=== PATIENT | female | born 1980 | race African-American/Black ===

== ENCOUNTER 2019-08-21 21:40 | Inpatient (IN) | payer BC ==
[~2019-08-21] VITALS: Ht 162.6 cm; Wt 120.5 kg
[2019-08-21 22:07] LABS: BASOPHILS # (AUTO) 0.1 X10'3 (0-0.2); BASOPHILS % (AUTO) 0.9 % (0-1); EOSINOPHILS # (AUTO) 0.1 X10'3 (0-0.9); EOSINOPHILS % (AUTO) 1.4 % (0-6); HEMATOCRIT 32.7 % (35.0-45.0); HEMOGLOBIN 10.5 g/dl (12.0-16.0); LYMPHOCYTES # (AUTO) 1.5 X10'3 (1.1-4.8); LYMPHOCYTES % (AUTO) 23.1 % (21-51); MEAN CORPUSCULAR HGB CONC 32.2 g/dL (33.0-36.5); MEAN CORPUSCULAR VOLUME 77.5 FL (78-98); MEAN PLATELET VOLUME 9.4 FL (7.4-10.4); MONOCYTES # (AUTO) 0.5 X10'3 (0-0.9); MONOCYTES % (AUTO) 8.6 % (2-12); NEUTROPHILS # (AUTO) 4.2 X10'3 (1.8-7.7); PLATELET COUNT 222 X10'3 (140-440); RED BLOOD COUNT 4.22 X10'6 (4.20-5.60); RED CELL DISTRIBUTION WIDTH 16.3 % (11.5-14.5); WHITE BLOOD COUNT 6.4 X10'3 (4.5-11.0)
[2019-08-21 22:26] LABS: PARTIAL THROMBOPLASTIN TIME 26 SECONDS (22-32)
[2019-08-21 22:29] LABS: ALANINE AMINOTRANSFERASE 20 U/L (12-78); ALBUMIN 3.6 G/DL (3.4-5.0); ALKALINE PHOSPHATASE 101 IU/L (46-116); ANION GAP 8 (8-16); ASPARTATE AMINO TRANSFERASE 12 U/L (10-37); BILIRUBIN,TOTAL 0.2 MG/DL (0.1-1.0); BLOOD UREA NITROGEN 10 MG/DL (7-18); BUN/CREATININE RATIO 10.2 (6.6-38.0); CHLORIDE 106 MMOL/L (99-107); CREATININE 0.98 MG/DL (0.40-0.90); GLUCOSE 99 MG/DL (70-104); POTASSIUM 3.6 MMOL/L (3.5-5.1); SODIUM 141 MMOL/L (135-145); TOTAL CARBON DIOXIDE 26.8 MMOL/L (24-32); TOTAL PROTEIN 7.1 G/DL (6.4-8.2); TROPONIN I < 0.04 NG/ML (0.0-0.05); eGFR 64 ML/MIN
[2019-08-21] MEDS ORDERED: iohexol 350MG/ML 100ml bottle IV ONE (22:45)
--- NOTE | 2019-08-21 23:10 | NUR ---
NOTIFIED JIMMIE PT HAS HX OF MIGRAINES AND WOULD LIKE ASPIRIN. SHE IS ALSO FEELING NAUSEATED. NO NEW NEURO SYMPTOMS
[2019-08-21] MEDS ORDERED: aspirin 325mg tablet PO ONE (23:45)
[2019-08-21] MEDS ORDERED: DULO-31 PO (23:56)
--- NOTE | 2019-08-22 02:01 | NUR ---
HOSPITALIST AT BEDSIDE FOR ADMISSION
[2019-08-22] MEDS ORDERED: magnesium hydroxide 30ml (MOM) UD suspension PO PRN (02:25)
[2019-08-22] MEDS ORDERED: acetaminophen 325mg tablet PO PRN (02:25)
[2019-08-22] MEDS ORDERED: mag hydrox/Alum hydrox/simeth 30ml oral suspension PO PRN (02:25)
[2019-08-22] MEDS ORDERED: ondansetron/PF 4mg/2ml inj IV PRN (02:25)
[2019-08-22] MEDS ORDERED: LEVO50TA8 PO (02:33)
[2019-08-22] MEDS ORDERED: LORA10TA7 PO (02:33)
[2019-08-22] MEDS ORDERED: loratadine 10mg tablet PO PRN (02:50)
--- NOTE | 2019-08-22 02:51 | NUR ---
Received report from Mimi VAZQUEZ from ED. Patient came up to floor via wheelchair. Patient able to walk to bed ad james. Bed in locked & low position. Call light placed within reach.
[2019-08-22 02:55] VITALS: BP 142/75
[2019-08-22 06:00] VITALS: BP 122/51
--- NOTE | 2019-08-22 06:28 | NUR ---
Problems reprioritized. Patient report given, questions answered & plan of care reviewed with Nat VAZQUEZ.
[2019-08-22] MEDS ORDERED: levoTHYROXINE 25mcg tablet PO SCH (08:00)
[2019-08-22] MEDS ORDERED: duloxetine 30mg CAPSULE.DR PO SCH (08:00)
[2019-08-22] MEDS: heparin, porcine 5000 units/ml vial SQ SCH ×2 (08:05→20:00)
[2019-08-22] MEDS ORDERED: aspirin 325mg tablet PO SCH (08:30)
[2019-08-22 10:00] VITALS: BP 133/70
--- NOTE | 2019-08-22 12:09 | NUR ---
PAGER ID: [phone] MESSAGE: Nat [id number] re Shilpa Arreola in [id number]- she is willing to try MRI with plenty of sedation. She is extremely claustrophobic. need sedative order pls
[2019-08-22 12:39] LABS: CHOL/HDL RATIO 3.1 (0.00-4.99); CHOLESTEROL 172 MG/DL (0-200); HDL CHOLESTEROL 55 MG/DL (35-60); LDL CHOLESTEROL 101 MG/DL (50-100); TRIGLYCERIDES 49 MG/DL (20-135)
--- NOTE | 2019-08-22 13:05 | NUR ---
PAGER ID: [phone] MESSAGE: [id number] Maxwell Massey- Could we do another tele neuro consult? pt does not want MRI. Nat [id number]
--- NOTE | 2019-08-22 14:53 | NUR ---
Patient expressing wanting to go home. Spoke with MD Mario, wanted to advise her of Dr. Butt's recommendation that no intervention is needed at this time and patient should be started on aspirin. MD Mario stated she wants to observe patient for 24 hr and no tele neuro consult is needed at this time.
[2019-08-22] MEDS ORDERED: LORazepam 2 mg/ml vial IV ONE (15:45)
--- NOTE | 2019-08-22 16:58 | NUR ---
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 Nat [id number]
--- NOTE | 2019-08-22 17:25 | NUR ---
Called for follow up phone tele neuro consult
--- NOTE | 2019-08-22 17:46 | NUR ---
PAGER ID: [phone] MESSAGE: [id number] Maxwell Massey- EKG complete- Borderline EKG would you like to come read it? thank you Nat [id number]
[2019-08-22 18:00] VITALS: BP 125/60
--- NOTE | 2019-08-22 18:20 | NUR ---
Problems reprioritized. Patient report given, questions answered & plan of care reviewed with Janae VAZQUEZ.
--- NOTE | 2019-08-22 18:20 | NUR ---
Patient in room ORTHO 4024. I have received report from GEORGE Johns and had the opportunity to ask questions and assume patient care.
[2019-08-22] MEDS ORDERED: ASPI-1 PO (18:56)
[2019-08-22] MEDS ORDERED: CLOP75TA15 PO (18:59)
--- NOTE | 2019-08-22 20:00 | NUR ---
I gave patient her d/c instructions she was in w/c, and escorted her to front of hospital to meet her brother.
--- NOTE | 2019-08-22 20:00 | NUR ---
Pt. discharge home .Her brother was waiting for her outside .Instruction was given to pt. prior to discharge.
[2019-08-22] MEDS ORDERED: clopidogrel 75mg tablet PO ONE (20:10)
[2019-08-22] MEDS ORDERED: atorvastatin 20mg tablet PO ONE (20:10)
--- NOTE | 2019-08-22 22:14 | NUR ---
I was finally able to reach [facility] pharmacy and call in her new home medications.
[2019-08-22] MEDS ORDERED: ATOR40TA PO (22:49)
[2019-08-23 07:24] LABS: HIV ANTIBODY 1&2 RAPID NON-REACTIVE (Neg)
[2019-08-23] MEDS ORDERED: clopidogrel 75mg tablet PO SCH (08:00)
[2019-08-23] MEDS ORDERED: atorvastatin 20mg tablet PO SCH (08:00)
[2019-08-25 13:11] LABS: ANTINUCLEAR ANTIBODIES Negative (Negative); HEPATITIS C ANTIBODY 0.4 s/co ratio (0.0-0.9)
== END 2019-08-22 20:10 | disposition home or self-care (01) | DRG 66 ==
LOC: ER 21:41 → ED HOLD 08-22 02:25 → ORTHO 4S 08-22 02:50
PROVIDERS: ADMIT Internal Medicine; ATTEND Internal Medicine
PROC: B3251ZZ Computerized Tomography (CT Scan) of Bilateral Common Carotid Arteries using Low Osmolar Contrast (ICD-10-PCS; principal; 2019-08-22)
PROC: B32G1ZZ Computerized Tomography (CT Scan) of Bilateral Vertebral Arteries using Low Osmolar Contrast (ICD-10-PCS; 2019-08-22)
PROC: B3281ZZ Computerized Tomography (CT Scan) of Bilateral Internal Carotid Arteries using Low Osmolar Contrast (ICD-10-PCS; 2019-08-22)
DX: I63.9 Cerebral infarction, unspecified (principal); E03.9 Hypothyroidism, unspecified; G43.909 Migraine, unspecified, not intractable, without status migrainosus; F32.9 Major depressive disorder, single episode, unspecified; G62.9 Polyneuropathy, unspecified; R73.03 Prediabetes
CPT/HCPCS: 36415; 70450; 70496; 70498; 70544; 70551; 71045; 80053; 80061; 82948; 83036; 84443; 84484; 85025; 85610; 85730; 86038; 86703; 86803; 87081; 93005; 93306; 93880; 99285; G0378; J1644; J2060; Q9967

== ENCOUNTER 2020-07-03 15:27 | Inpatient (IN) | payer BC ==
[~2020-07-03] VITALS: Ht 160 cm; Wt 125.0 kg
[~2020-07-03 15:27] MED LIST: CLOP75TA15 PO; DULO-31 PO; LEVO50TA8 PO; LORA10TA7 PO
[2020-07-03] MEDS ORDERED: iohexol 350MG/ML 100ml bottle IV ONE (15:41)
[2020-07-03 16:08] LABS: BASOPHILS % (AUTO) 0.9 % (0-1); EOSINOPHILS # (AUTO) 0.1 X10'3 (0-0.9); EOSINOPHILS % (AUTO) 1.6 % (0-6); HEMATOCRIT 33.6 % (35.0-45.0); HEMOGLOBIN 11.2 g/dl (12.0-16.0); LYMPHOCYTES # (AUTO) 0.9 X10'3 (1.1-4.8); LYMPHOCYTES % (AUTO) 22.2 % (21-51); MEAN CORPUSCULAR HEMOGLOBIN 27.8 PG (27.0-31.0); MEAN CORPUSCULAR HGB CONC 33.3 g/dL (33.0-36.5); MEAN CORPUSCULAR VOLUME 83.7 FL (78-98); MEAN PLATELET VOLUME 9.2 FL (7.4-10.4); MONOCYTES # (AUTO) 0.2 X10'3 (0-0.9); MONOCYTES % (AUTO) 6.1 % (2-12); NEUTROPHILS # (AUTO) 2.8 X10'3 (1.8-7.7); NEUTROPHILS % (AUTO) 69.2 % (42-75); PLATELET COUNT 219 X10'3 (140-440); RED BLOOD COUNT 4.02 X10'6 (4.20-5.60); RED CELL DISTRIBUTION WIDTH 16.9 % (11.5-14.5)
--- NOTE | 2020-07-03 16:11 | NUR ---
back from ct scan via laura accompanied by nurse and tech
[2020-07-03 16:16] LABS: PARTIAL THROMBOPLASTIN TIME 25 SECONDS (22-32)
[2020-07-03] MEDS ORDERED: ketorolac trometh. 30mg/ml inj. IV ONE (16:25)
[2020-07-03 16:30] LABS: ALANINE AMINOTRANSFERASE 63 U/L (12-78); ALBUMIN 3.6 G/DL (3.4-5.0); ALBUMIN/GLOBULIN RATIO 1.1 (1.1-1.5); ALKALINE PHOSPHATASE 68 IU/L (46-116); ANION GAP 10 (8-16); ASPARTATE AMINO TRANSFERASE 30 U/L (10-37); BILIRUBIN,TOTAL 0.3 MG/DL (0.1-1.0); BLOOD UREA NITROGEN 9 MG/DL (7-18); BUN/CREATININE RATIO 12.5 (6.6-38.0); CALCIUM 8.7 MG/DL (8.5-10.1); CHLORIDE 106 MMOL/L (99-107); CREATININE 0.72 MG/DL (0.40-0.90); GLUCOSE 150 MG/DL (70-104); POTASSIUM 3.2 MMOL/L (3.5-5.1); SODIUM 141 MMOL/L (135-145); TOTAL CARBON DIOXIDE 25.1 MMOL/L (24-32); TOTAL PROTEIN 6.9 G/DL (6.4-8.2); eGFR > 90 ML/MIN
[2020-07-03 16:33] LABS: ANISOCYTOSIS 1+; ELLIPTOCYTES FEW; PLATELET ESTIMATE NORMAL; POLYCHROMASIA FEW; TEAR DROP CELLS FEW
[2020-07-03] MEDS ORDERED: mag hydrox/Alum hydrox/simeth 30ml oral suspension PO PRN (17:15)
[2020-07-03] MEDS ORDERED: magnesium hydroxide 30ml (MOM) UD suspension PO PRN (17:15)
[2020-07-03] MEDS ORDERED: acetaminophen 325mg tablet PO PRN (17:15)
[2020-07-03] MEDS ORDERED: ondansetron/PF 4mg/2ml inj IV PRN (17:15)
[2020-07-03] MEDS ORDERED: potassium Cl 20 mEq SR tablet PO STA (18:40)
[2020-07-03] MEDS: normal saline 1000ml 1,000 ML IV SCH (19:14)
[2020-07-03 19:35] LABS: URINE HCG NEGATIVE (NEG)
[2020-07-03 19:37] LABS: CLARITY,URINE CLEAR (Clear); COLOR,URINE YELLOW (Yellow); GLUCOSE, URINE NEGATIVE (Neg); KETONES,URINE NEGATIVE (Neg); LEUKOCYTE ESTERASE ,URINE NEGATIVE (Neg); NITRITES, URINE NEGATIVE (Neg); OCCULT BLOOD,URINE NEGATIVE (Neg); PROTEIN,URINE NEGATIVE (Neg); UROBILINOGEN,URINE 0.2 E.U/dL (0.2-1.0)
[2020-07-03 19:39] LABS: CHOL/HDL RATIO 2.9 (0.00-4.99); CHOLESTEROL 178 MG/DL (0-200); HDL CHOLESTEROL 61 MG/DL (35-60); LDL CHOLESTEROL 100 MG/DL (50-100); TRIGLYCERIDES 85 MG/DL (20-135)
--- NOTE | 2020-07-03 19:45 | NUR ---
Patient in ER. I have received report from Veronica VAZQUEZ and had the opportunity to ask questions and assume patient care.
[2020-07-03 19:49] LABS: UA COLLECTION TYPE VOIDED
[2020-07-03 19:50] VITALS: BP 128/89
[2020-07-03 19:50] LABS: URINE AMPHETAMINE SCREEN NEGATIVE (Neg); URINE BARBITUATE SCREEN NEGATIVE (Neg); URINE BENZODIAZEPINES SCREEN NEGATIVE (Neg); URINE CANNABINOID SCREEN NEGATIVE (Neg); URINE COCAINE SCREEN NEGATIVE (Neg); URINE METHADONE SCREEN NEGATIVE (Neg); URINE OPIATE SCREEN NEGATIVE (Neg); URINE PHENCYCLIDINE SCREEN NEGATIVE (Neg)
[2020-07-03 22:00] VITALS: BP 131/68
[2020-07-03] MEDS: butalbital/acetaminophen/caffeine (Fioricet) tablet PO PRN (22:14)
[2020-07-04 02:00] VITALS: BP 105/53
[2020-07-04] MEDS: normal saline 1000ml 1,000 ML IV SCH ×2 (04:09→13:16)
--- NOTE | 2020-07-04 06:07 | NUR ---
Patient in room ORTHO 4022. I have received report from Radha VAZQUEZ and had the opportunity to ask questions and assume patient care.
--- NOTE | 2020-07-04 06:10 | NUR ---
Patient in room ORTHO 4022. I have received report from GEORGE Garcia and had the opportunity to ask questions and assume patient care.
--- NOTE | 2020-07-04 06:17 | NUR ---
Patient in room ORTHO 4022. I have received report from Maria C VAZQUEZ and had the opportunity to ask questions and assume patient care. Addendum: 07/04/20 at 0623 by Candie Leal RN MADE NOTE IN ERROR CANDIE VAZQUEZ HAS RECEIVED REPORT FROM MARIA C VAZQUEZ
[2020-07-04 06:35] VITALS: BP 111/46
[2020-07-04 06:37] VITALS: BP 115/59
[2020-07-04 06:53] LABS: BASOPHILS % (AUTO) 0.5 % (0-1); EOSINOPHILS # (AUTO) 0.1 X10'3 (0-0.9); EOSINOPHILS % (AUTO) 1.4 % (0-6); HEMATOCRIT 33.1 % (35.0-45.0); LYMPHOCYTES # (AUTO) 1.1 X10'3 (1.1-4.8); LYMPHOCYTES % (AUTO) 24.7 % (21-51); MEAN CORPUSCULAR HEMOGLOBIN 27.6 PG (27.0-31.0); MEAN CORPUSCULAR HGB CONC 33.3 g/dL (33.0-36.5); MEAN CORPUSCULAR VOLUME 82.7 FL (78-98); MEAN PLATELET VOLUME 8.9 FL (7.4-10.4); MONOCYTES # (AUTO) 0.4 X10'3 (0-0.9); MONOCYTES % (AUTO) 8.1 % (2-12); NEUTROPHILS # (AUTO) 2.9 X10'3 (1.8-7.7); NEUTROPHILS % (AUTO) 65.3 % (42-75); PLATELET COUNT 198 X10'3 (140-440); RED CELL DISTRIBUTION WIDTH 16.9 % (11.5-14.5); WHITE BLOOD COUNT 4.4 X10'3 (4.5-11.0)
[2020-07-04 06:57] LABS: ALBUMIN 3.5 G/DL (3.4-5.0); ANION GAP 9 (8-16); BLOOD UREA NITROGEN 8 MG/DL (7-18); BUN/CREATININE RATIO 15.4 (6.6-38.0); CALCIUM 8.5 MG/DL (8.5-10.1); CHLORIDE 108 MMOL/L (99-107); CREATININE 0.52 MG/DL (0.40-0.90); GLUCOSE 96 MG/DL (70-104); POTASSIUM 3.5 MMOL/L (3.5-5.1); SODIUM 141 MMOL/L (135-145); TOTAL CARBON DIOXIDE 23.8 MMOL/L (24-32); eGFR > 90 ML/MIN
--- NOTE | 2020-07-04 07:16 | NUR ---
PAGER ID: [phone] MESSAGE: [id number] Maxwell needs Ativan for mri and can you address her med rec she has Synthroid she needs this AM thanks, blank patel [phone]
[2020-07-04 07:54] VITALS: BP 130/57
[2020-07-04] MEDS ORDERED: LORazepam 2 mg/ml vial IV ONE (07:55)
[2020-07-04] MEDS ORDERED: levoTHYROXINE 25mcg tablet PO ONE (07:55)
[2020-07-04] MEDS ORDERED: enoxaparin 40mg/0.4ml syringe SUBCUT SCH (08:00)
[2020-07-04] MEDS ORDERED: loratadine 10mg tablet PO ONE (08:00)
[2020-07-04] MEDS ORDERED: aspirin 81mg tablet.DR PO SCH (08:00)
[2020-07-04 08:06] LABS: ANISOCYTOSIS 1+; ELLIPTOCYTES FEW; LARGE PLATELETS FEW; PLATELET ESTIMATE NORMAL
[2020-07-04] MEDS: butalbital/acetaminophen/caffeine (Fioricet) tablet PO PRN ×2 (08:42→15:01)
--- NOTE | 2020-07-04 09:30 | NUR ---
Medicated with ativan for claustrophobia and placed into a wheelchair to go to MRI.
[2020-07-04 10:18] VITALS: BP 129/81
[2020-07-04] MEDS ORDERED: atorvastatin 20mg tablet PO SCH (10:55)
--- NOTE | 2020-07-04 11:54 | NUR ---
Student documentation:I have reviewed and agree with all interventions, assessments performed and documented by Rita Puri.
--- NOTE | 2020-07-04 12:32 | NUR ---
PAGER ID: [phone] MESSAGE: [id number] nohelia all tests are back, mri is positive. thanks blank patel [phone]
[2020-07-04 12:46] LABS: HEMOGLOBIN A1C 5.6 % (4.5-6.2)
[2020-07-04] MEDS ORDERED: ASPI81TA52 PO (13:05)
[2020-07-04] MEDS ORDERED: CLOP75TA15 PO (13:05)
[2020-07-04] MEDS ORDERED: ATOR20TA PO (13:05)
--- NOTE | 2020-07-04 14:26 | NUR ---
PAGER ID: [phone] MESSAGE: [id number], nohelia are you going to discharge her with any fioricet ? thanks blank patel [phone]
--- NOTE | 2020-07-04 14:55 | NUR ---
PAGER ID: [phone] MESSAGE: [id number], Maxwell is leaving at 1500 if you could call in [facility] for her migraines to [facility] on [address] [phone] thanks blank [phone]
--- NOTE | 2020-07-04 15:00 | NUR ---
Patient was discharged to home, escorted out in a wheelchair. Prescriptions called in to [facility]. Iv removed cannula intact no s/s of phlebitis.
[2020-07-04] MEDS ORDERED: BUTA-281 PO (15:44)
--- NOTE | 2020-07-04 15:44 | NUR ---
ELSA SCHREIBER RN, HAS TRIED TO CONTACT DR DUGGAN REGARDING NEW RX FOR MAYCOT. AFTER MULTIPLE PAGES, BY RN I CALLED MD ON CELL PHONE. WAS SURPRISED TO GET CALL ON CELL PHONE. HE STATED HE WILL CALL IT IN WHEN HE GETS A CHANCE. Addendum: 07/04/20 at 1551 by Ruba De Luna RN PT CALLED RN STATION WHILE AT PHARMACY. MED HAD NOT BEEN CALLED IN. I ADVISED PT OF WHAT STATED.
--- NOTE | 2020-07-05 13:42 | NUR ---
CASE MANAGEMENT DISCHARGE FOLLOW UP: Spoke with pt via telephone. Reports that she is doing okay, still has severe headache, states that new Rx Fiorcet is helping a little bit; denies weakness, changes to vision/speech, facial drooping, bleeding. Verbalizes understanding of s/sx requiring further evaluation/emergent assistance. Verbalizes understanding of new and current medications. Verbalizes compliance with MD discharge instructions. Verbalizes understanding of the importance in making/keeping follow-up appointments, will see PMD tomorrow and will f/u with treasury manager. Upon enquiry as at [facility], pt states that all the nurses were ar. States no further questions/concerns at this time. Addendum: 07/05/20 at 1351 by Elissa Velazquez RN Pt states that her PMD is Verna BELLAMY
== END 2020-07-04 13:15 | disposition home or self-care (01) | DRG 66 ==
LOC: ER 15:28 → ED HOLD 17:24 → EDBEDREQ 18:22 → ORTHO 4S 19:45
PROVIDERS: ADMIT Family Medicine; ATTEND Family Medicine
PROC: B3251ZZ Computerized Tomography (CT Scan) of Bilateral Common Carotid Arteries using Low Osmolar Contrast (ICD-10-PCS; principal; 2020-07-03)
PROC: B32G1ZZ Computerized Tomography (CT Scan) of Bilateral Vertebral Arteries using Low Osmolar Contrast (ICD-10-PCS; 2020-07-03)
PROC: B32R1ZZ Computerized Tomography (CT Scan) of Intracranial Arteries using Low Osmolar Contrast (ICD-10-PCS; 2020-07-03)
PROC: B3281ZZ Computerized Tomography (CT Scan) of Bilateral Internal Carotid Arteries using Low Osmolar Contrast (ICD-10-PCS; 2020-07-03)
DX: I63.9 Cerebral infarction, unspecified (principal); E03.9 Hypothyroidism, unspecified; E87.6 Hypokalemia; G43.909 Migraine, unspecified, not intractable, without status migrainosus; G62.9 Polyneuropathy, unspecified; Z86.73 Personal history of transient ischemic attack (TIA), and cerebral infarction without residual deficits; Z88.5 Allergy status to narcotic agent; Z90.49 Acquired absence of other specified parts of digestive tract
CPT/HCPCS: 36415; 70450; 70496; 70498; 70544; 70551; 71045; 80048; 80053; 80061; 80305; 81003; 81025; 83036; 85008; 85025; 85610; 85730; 86885; 86900; 86901; 87081; 92508; 92616; 93005; 93306; 93880; 96374; 97161; 99285; G0378; J1650; J1885; J2060; J7030; Q9967

== ENCOUNTER 2020-07-06 20:57 | Inpatient (IN) | payer BC ==
[~2020-07-06] VITALS: Ht 162.6 cm; Wt 120.0 kg
[~2020-07-06 20:57] MED LIST changes: +ASPI81TA52 PO; +ATOR20TA PO; +BUTA-281 PO; -DULO-31 PO
[2020-07-06 22:01] LABS: BASOPHILS % (AUTO) 0.6 % (0-1); EOSINOPHILS # (AUTO) 0.1 X10'3 (0-0.9); EOSINOPHILS % (AUTO) 1.8 % (0-6); HEMOGLOBIN 11.4 g/dl (12.0-16.0); LYMPHOCYTES # (AUTO) 0.7 X10'3 (1.1-4.8); LYMPHOCYTES % (AUTO) 19.8 % (21-51); MEAN CORPUSCULAR HEMOGLOBIN 27.7 PG (27.0-31.0); MEAN CORPUSCULAR HGB CONC 33.4 g/dL (33.0-36.5); MEAN PLATELET VOLUME 9.2 FL (7.4-10.4); MONOCYTES # (AUTO) 0.4 X10'3 (0-0.9); MONOCYTES % (AUTO) 12.1 % (2-12); NEUTROPHILS # (AUTO) 2.2 X10'3 (1.8-7.7); NEUTROPHILS % (AUTO) 65.7 % (42-75); PLATELET COUNT 205 X10'3 (140-440); RED BLOOD COUNT 4.09 X10'6 (4.20-5.60); RED CELL DISTRIBUTION WIDTH 15.9 % (11.5-14.5); WHITE BLOOD COUNT 3.3 X10'3 (4.5-11.0)
[2020-07-06 22:09] LABS: PARTIAL THROMBOPLASTIN TIME 24 SECONDS (22-32)
[2020-07-06 22:13] LABS: ALANINE AMINOTRANSFERASE 36 U/L (12-78); ALBUMIN 3.8 G/DL (3.4-5.0); ALBUMIN/GLOBULIN RATIO 1.2 (1.1-1.5); ALKALINE PHOSPHATASE 83 IU/L (46-116); ANION GAP 13 (8-16); ASPARTATE AMINO TRANSFERASE 24 U/L (10-37); BILIRUBIN,TOTAL 0.4 MG/DL (0.1-1.0); BLOOD UREA NITROGEN 10 MG/DL (7-18); BUN/CREATININE RATIO 16.4 (6.6-38.0); CALCIUM 8.8 MG/DL (8.5-10.1); CHLORIDE 105 MMOL/L (99-107); CREATININE 0.61 MG/DL (0.40-0.90); GLUCOSE 85 MG/DL (70-104); SODIUM 142 MMOL/L (135-145); TOTAL CARBON DIOXIDE 23.9 MMOL/L (24-32); TOTAL PROTEIN 7.1 G/DL (6.4-8.2); eGFR > 90 ML/MIN
[2020-07-06 22:19] LABS: POTASSIUM 3.5 MMOL/L (3.5-5.1)
[2020-07-06] MEDS ORDERED: potassium Cl 20 mEq SR tablet PO PRN (23:25)
[2020-07-06] MEDS ORDERED: potassium Cl 40MEQ/1/2NS 520ml 520 ML IV PRN ×2 (23:25)
[2020-07-06] MEDS ORDERED: acetaminophen 325mg tablet PO PRN (23:25)
[2020-07-06] MEDS ORDERED: mag hydrox/Alum hydrox/simeth 30ml oral suspension PO PRN (23:25)
[2020-07-06] MEDS ORDERED: ondansetron/PF 4mg/2ml inj IV PRN (23:25)
[2020-07-06] MEDS ORDERED: magnesium hydroxide 30ml (MOM) UD suspension PO PRN (23:25)
[2020-07-06] MEDS ORDERED: loratadine 10mg tablet PO PRN (23:30)
--- NOTE | 2020-07-07 00:19 | NUR ---
Patient in room ED 16. I have received report from Catia VAZQUEZ and had the opportunity to ask questions and assume patient care.
[2020-07-07 00:54] VITALS: BP 124/57
[2020-07-07 02:22] VITALS: BP 121/59
[2020-07-07 06:00] VITALS: BP 100/60
[2020-07-07 06:21] LABS: BASOPHILS % (AUTO) 0.4 % (0-1); EOSINOPHILS # (AUTO) 0.1 X10'3 (0-0.9); EOSINOPHILS % (AUTO) 1.7 % (0-6); HEMATOCRIT 35.2 % (35.0-45.0); HEMOGLOBIN 11.6 g/dl (12.0-16.0); LYMPHOCYTES # (AUTO) 0.6 X10'3 (1.1-4.8); LYMPHOCYTES % (AUTO) 16.1 % (21-51); MEAN CORPUSCULAR HEMOGLOBIN 27.4 PG (27.0-31.0); MEAN CORPUSCULAR VOLUME 82.8 FL (78-98); MEAN PLATELET VOLUME 9.6 FL (7.4-10.4); MONOCYTES # (AUTO) 0.4 X10'3 (0-0.9); MONOCYTES % (AUTO) 12.2 % (2-12); NEUTROPHILS # (AUTO) 2.4 X10'3 (1.8-7.7); NEUTROPHILS % (AUTO) 69.6 % (42-75); PLATELET COUNT 190 X10'3 (140-440); RED BLOOD COUNT 4.25 X10'6 (4.20-5.60); RED CELL DISTRIBUTION WIDTH 15.7 % (11.5-14.5); WHITE BLOOD COUNT 3.5 X10'3 (4.5-11.0)
--- NOTE | 2020-07-07 06:30 | NUR ---
Problems reprioritized. Patient report given, questions answered & plan of care reviewed with Niya VAZQUEZ.
[2020-07-07 06:43] LABS: ALANINE AMINOTRANSFERASE 34 U/L (12-78); ALBUMIN 3.7 G/DL (3.4-5.0); ALBUMIN/GLOBULIN RATIO 1.1 (1.1-1.5); ALKALINE PHOSPHATASE 83 IU/L (46-116); ANION GAP 14 (8-16); ASPARTATE AMINO TRANSFERASE 16 U/L (10-37); BILIRUBIN,TOTAL 0.5 MG/DL (0.1-1.0); BLOOD UREA NITROGEN 8 MG/DL (7-18); BUN/CREATININE RATIO 14.5 (6.6-38.0); CALCIUM 8.8 MG/DL (8.5-10.1); CHLORIDE 105 MMOL/L (99-107); CREATININE 0.55 MG/DL (0.40-0.90); GLUCOSE 80 MG/DL (70-104); POTASSIUM 3.3 MMOL/L (3.5-5.1); SODIUM 143 MMOL/L (135-145); TOTAL CARBON DIOXIDE 24.3 MMOL/L (24-32); eGFR > 90 ML/MIN
[2020-07-07] MEDS ORDERED: heparin, porcine 5000 units/ml vial SQ SCH (08:00)
[2020-07-07] MEDS ORDERED: clopidogrel 75mg tablet PO SCH (08:00)
[2020-07-07] MEDS ORDERED: aspirin 81mg tablet.DR PO SCH (08:00)
[2020-07-07] MEDS ORDERED: K and/or MAG REPLACEMENT MC SCH (08:00)
[2020-07-07] MEDS: levoTHYROXINE 25mcg tablet PO SCH (08:50)
[2020-07-07] MEDS: atorvastatin 20mg tablet PO SCH (08:50)
[2020-07-07] MEDS: butalbital/acetaminophen/caffeine (Fioricet) tablet PO PRN (08:50)
[2020-07-07] MEDS: potassium Cl 20 mEq SR tablet PO PRN ×3 (09:00→20:20)
[2020-07-07 09:41] LABS: ELLIPTOCYTES FEW; PLATELET ESTIMATE NORMAL; SCHISTOCYTES FEW
[2020-07-07 10:00] VITALS: BP 124/61
[2020-07-07] MEDS ORDERED: magnesium 4gm in 100ml NS 100 ML IV PRN (10:10)
[2020-07-07] MEDS ORDERED: magnesium Cl slow-release 64mg tablet PO PRN (10:10)
--- NOTE | 2020-07-07 10:23 | NUR ---
PAGER ID: [phone] MESSAGE: Niya [phone] telly Massey- pt claustrophobic may we have a PO ativan for MRI? Does not want IV ativan. Thank you.
[2020-07-07] MEDS ORDERED: LORazepam 1 MG tablet PO ONE (10:35)
--- NOTE | 2020-07-07 12:03 | NUR ---
PAGER ID: [phone] MESSAGE: Niya [place]0 Shilpa Willson- received call from radiology, they have a critical finding for you, please call radiologist Dr manzo
--- NOTE | 2020-07-07 14:19 | NUR ---
PAGER ID: [phone] MESSAGE: Niya [id number]- Shilpa Willson- please see neurologist recommendations and advise. Addendum: 07/07/20 at 1428 by India Manrique RN received orders from hospitalist to follow neurologist recommendations
[2020-07-07] MEDS ORDERED: heparin 10,000 units/1 ML INJ IV PRN (15:20)
[2020-07-07 15:58] LABS: PARTIAL THROMBOPLASTIN TIME 27 SECONDS (22-32)
[2020-07-07] MEDS: heparin 25,000 UNIT/250ml bag 250 ML IV SCH (16:33)
[2020-07-07 18:00] VITALS: BP 126/79
--- NOTE | 2020-07-07 18:44 | NUR ---
Patient in room ORTHO 4024. I have received report from Niya VAZQUEZ and had the opportunity to ask questions and assume patient care.
[2020-07-07] MEDS ORDERED: simethicone 80mg chew tab PO PRN (19:55)
[2020-07-07] MEDS: K and/or MAG REPLACEMENT MC SCH (20:00)
[2020-07-07 22:23] VITALS: BP 115/55
[2020-07-08 02:28] VITALS: BP 108/58
[2020-07-08 06:09] LABS: BASOPHILS % (AUTO) 0.5 % (0-1); EOSINOPHILS # (AUTO) 0.1 X10'3 (0-0.9); EOSINOPHILS % (AUTO) 1.3 % (0-6); HEMATOCRIT 32.8 % (35.0-45.0); HEMOGLOBIN 10.9 g/dl (12.0-16.0); LYMPHOCYTES # (AUTO) 0.9 X10'3 (1.1-4.8); LYMPHOCYTES % (AUTO) 20.7 % (21-51); MEAN CORPUSCULAR HEMOGLOBIN 27.5 PG (27.0-31.0); MEAN CORPUSCULAR HGB CONC 33.2 g/dL (33.0-36.5); MEAN CORPUSCULAR VOLUME 82.7 FL (78-98); MEAN PLATELET VOLUME 9.5 FL (7.4-10.4); MONOCYTES # (AUTO) 0.5 X10'3 (0-0.9); MONOCYTES % (AUTO) 11.3 % (2-12); NEUTROPHILS # (AUTO) 2.8 X10'3 (1.8-7.7); NEUTROPHILS % (AUTO) 66.2 % (42-75); PLATELET COUNT 188 X10'3 (140-440); RED BLOOD COUNT 3.96 X10'6 (4.20-5.60); RED CELL DISTRIBUTION WIDTH 15.8 % (11.5-14.5); WHITE BLOOD COUNT 4.2 X10'3 (4.5-11.0)
--- NOTE | 2020-07-08 06:22 | NUR ---
Problems reprioritized. Patient report given, questions answered & plan of care reviewed with Aron VAZQUEZ.
[2020-07-08 06:40] LABS: ALANINE AMINOTRANSFERASE 32 U/L (12-78); ALBUMIN 3.5 G/DL (3.4-5.0); ALBUMIN/GLOBULIN RATIO 1.1 (1.1-1.5); ALKALINE PHOSPHATASE 75 IU/L (46-116); ANION GAP 11 (8-16); ASPARTATE AMINO TRANSFERASE 13 U/L (10-37); BILIRUBIN,TOTAL 0.3 MG/DL (0.1-1.0); BLOOD UREA NITROGEN 9 MG/DL (7-18); BUN/CREATININE RATIO 15.3 (6.6-38.0); CALCIUM 8.9 MG/DL (8.5-10.1); CHLORIDE 107 MMOL/L (99-107); CREATININE 0.59 MG/DL (0.40-0.90); GLUCOSE 93 MG/DL (70-104); PHOSPHORUS 3.7 MG/DL (2.3-4.5); POTASSIUM 3.9 MMOL/L (3.5-5.1); SODIUM 141 MMOL/L (135-145); TOTAL CARBON DIOXIDE 22.8 MMOL/L (24-32); TOTAL PROTEIN 6.7 G/DL (6.4-8.2); eGFR > 90 ML/MIN
[2020-07-08] MEDS: levoTHYROXINE 25mcg tablet PO SCH (07:06)
[2020-07-08] MEDS: K and/or MAG REPLACEMENT MC SCH (07:18)
[2020-07-08 07:41] VITALS: BP 117/71
[2020-07-08] MEDS: atorvastatin 20mg tablet PO SCH (08:11)
[2020-07-08 09:39] VITALS: BP 120/64
[2020-07-08] MEDS: heparin 25,000 UNIT/250ml bag 250 ML IV SCH (10:24)
[2020-07-08] MEDS: butalbital/acetaminophen/caffeine (Fioricet) tablet PO PRN (10:26)
--- NOTE | 2020-07-08 10:37 | NUR ---
Pt states she feels a headache coming on. Migraine med given per pt request.
[2020-07-08] MEDS ORDERED: apixaban 5mg tablet PO SCH (12:45)
[2020-07-08] MEDS ORDERED: APIX5TAB3 PO (13:08)
[2020-07-08] MEDS ORDERED: ROSU40TA PO (13:13)
[2020-07-09 07:11] LABS: PROTEIN S, FREE 123 % (57-157); PROTEIN S, TOTAL 93 % (60-150)
[2020-07-09 08:10] LABS: ANTITHROMBIN ACTIVITY 94 % (75-135); ANTITHROMBIN ANTIGEN 89 % (72-124)
== END 2020-07-08 15:00 | disposition home or self-care (01) | DRG 66 ==
LOC: ER 20:57 → ED HOLD 23:24 → ORTHO 4S 07-07 00:34
PROVIDERS: ADMIT Internal Medicine; ATTEND Family Medicine
DX: I63.9 Cerebral infarction, unspecified (principal); D64.9 Anemia, unspecified; Z20.822 Contact with and (suspected) exposure to COVID-19; E78.00 Pure hypercholesterolemia, unspecified; E78.5 Hyperlipidemia, unspecified; G43.909 Migraine, unspecified, not intractable, without status migrainosus; Z86.73 Personal history of transient ischemic attack (TIA), and cerebral infarction without residual deficits
CPT/HCPCS: 36415; 70450; 70551; 71045; 80053; 81479; 82948; 83735; 83891; 83894; 83898; 84100; 84443; 85008; 85025; 85300; 85301; 85303; 85305; 85306; 85610; 85730; 86147; 87081; 87635; 93005; 99285; C9803; G0378; J1644